=== PATIENT | female | born 1965 | race African-American/Black ===

== ENCOUNTER 2017-03-02 15:59 | Emergency (ER) | payer SELFPAY ==
[~2017-03-02] VITALS: Ht 167.6 cm; Wt 108.0 kg
[~2017-03-02 15:59] MED LIST: ALBI1INJ SQ; DAPA1TAB2 PO; ENOX30P SQ; GLIP5 PO; HYDR-3580 PO; TRAM50 PO; Z.0.COMMODE-3:1; Z.0.CPM; Z.0.WALKERFRONT
[2017-03-02 16:05] VITALS: BP 166/81; PULSE 80; RESP 16; TEMP 98.8; O2SAT 100
[2017-03-02] MEDS ORDERED: DEXAMETHASONE SOD PHOS 20 MG/5 ML VIAL IM ONE (17:15)
[2017-03-02] MEDS ORDERED: oxyCODONE/ACETAMINOPHEN 5 MG/325 MG TAB PO ONE (17:15)
[2017-03-02] MEDS ORDERED: KETOROLAC TROMETHAMINE 60 MG/2 ML (IM) VIAL IM ONE (17:15)
--- NOTE | 2017-03-02 17:17 | PD ---
HPI Chief Complaint: Back/ Neck Pain or Injury Time Seen by Provider: 17:07 Travel History International Travel<30 days: No Contact w/Intl Traveler<30days: No Traveled to known affect area: No History of Present Illness HPI Patient is a 52-year-old female with history of hypertension, severe arthritis, diabetes, history of urinary incontinence presents to emergency room with complaints of low back pain. Patient reports that her left side of her low back has been hurting her for the past few days. Patient reports that she has pain from her left sided low back which radiates down to her pulse ox. Patient reports that when she sits and relaxes, pain resolves on its own. Patient reports increased pains with ambulation. Patient denies any fall or trauma to her low back the past few days, patient denies any IV drug abuse. Patient reports that she is generally incontinent of urine, she always wears depends underwear. Denies saddle anesthesia. Patient with no fever or chills, no abdominal pain. Patient with no other complaints at this time. PFSH Past Medical History Arthritis: Yes (LEFT KNEE) Asthma: Yes Autoimmune Disease: No Blood Disorders: Yes (UTERINE BLEEDING DYSFUNCTION) Cancer: No Cardiovascular Problems: Yes High Cholesterol: Yes Cerebrovascular Accident: No Diabetes: Yes (diet control) Patient Takes Glucophage: No Diminished Hearing: No Endocrine: Yes (psoriasis) Gastrointestinal Disorders: Yes (VENTRAL HERNIA) Glaucoma: No Genitourinary: No Hepatitis: No Hiatal Hernia: No Hypertension: Yes Immune Disorder: No Implanted Vascular Access Dvce: No Musculoskeletal: Yes (osteoartriis) Neurologic: No Psychiatric: No Reproductive: Yes (UTERINE BLEEDING DYSFUNCTION) Respiratory: Yes (ASTHMA) Immunizations Current: No Myocardial Infarction: No Thyroid Disease: No Influenza Vaccination: No ?: Not Menopausal: Yes : 1 Para: 1 Past Surgical History Abdominal Surgery: Yes (EXP LAP, VENTRAL HERNIA REPAIR, ) AICD: No Appendectomy: Yes Cardiac Surgery: No Section: Yes Ear Surgery: No Endocrine Surgery: No Eye Surgery: No Genitourinary Surgery: No Gynecologic Surgery: Yes (ROCIO, BSO) Hysterectomy: Yes Joint Replacement: No Oral Surgery: No Pacemaker: No Thoracic Surgery: No Other Surgery: Yes Social History Alcohol Use: No Tobacco Use: Yes (1/2 ppk day x20 yrs) Substance Use: No Allergies-Medications (Allergen,Severity, Reaction): Coded Allergies: diatrizoate meglumine (Unverified Adverse Reaction, Severe, VOMITING, ) gadobenic acid (Unverified Adverse Reaction, Severe, VOMITING, 03/02/17) gadodiamide (Unverified Adverse Reaction, Severe, VOMITING, 03/02/17) gadoteridol (Unverified Adverse Reaction, Severe, VOMITING, 03/02/17) iodixanol (Unverified Adverse Reaction, Severe, VOMITING, 03/02/17) iohexol (Unverified Adverse Reaction, Severe, VOMITING, 03/02/17) Reported Meds & Prescriptions Reported Meds & Active Scripts Active Ibuprofen 600 Mg Tab 600 Mg PO Q6H PRN Medrol Dosepak (Methylprednisolone) 4 Mg Dspk 4 Mg PO DIRECTED Per Pharmacist direction Percocet (Oxycodone-Acetaminophen) 5-325 mg Tab 1 Tab PO Q6H PRN Review of Systems General / Constitutional: No: Fever Eyes: No: Visual changes HENT: No: Headaches Cardiovascular: No: Chest Pain or Discomfort Respiratory: No: Shortness of Breath Gastrointestinal: No: Abdominal Pain Genitourinary: No: Dysuria Musculoskeletal: Positive: Pain (left sided low back pain) Skin: No Rash Neurologic: No: Weakness Psychiatric: No: Depression Endocrine: No: Polydipsia Hematologic/Lymphatic: No: Easy Bruising Physical Exam Narrative GENERAL: moderate distress SKIN: Focused skin assessment warm/dry. HEAD: Atraumatic. Normocephalic. NECK: Trachea midline. No JVD. CARDIOVASCULAR: Regular rate and rhythm. No murmur appreciated. RESPIRATORY: No accessory muscle use. Clear to auscultation. Breath sounds equal bilaterally. GASTROINTESTINAL: Abdomen soft, non-tender, nondistended. Hepatic and splenic margins not palpable. MUSCULOSKELETAL: No obvious deformities. No clubbing. No cyanosis. No edema. Patient with left sided lumbar paraspinal tenderness, pain to left lower extremity with 30 degrees leg raises NEUROLOGICAL: Awake and alert. No obvious cranial nerve deficits. Motor grossly within normal limits. Normal speech. Patient ambulating in the emergency with normal gait. PSYCHIATRIC: Appropriate mood and affect; insight and judgment normal. Data Data Last Documented VS Vital Signs Date Time Temp Pulse Resp B/P (MAP) Pulse Ox O2 Delivery O2 Flow Rate FiO2 03/02/17 16:05 98.8 80 16 166/81 (109) 100 Orders Orders Spine, Lumbar - Ltd (Ap & Lat) (03/02/17 ) Ketorolac Inj (Toradol Inj) (03/02/17 17:15) Dexamethasone Inj (Decadron Inj) (03/02/17 17:15) Oxycodone-Acetamin 5-325 Mg (Percocet (03/02/17 17:15) MDM Medical Decision Making Medical Screen Exam Complete: Yes Emergency Medical Condition: Yes Medical Record Reviewed: Yes Interpretation(s) Vital Signs Date Time Temp Pulse Resp B/P (MAP) Pulse Ox O2 Delivery O2 Flow Rate FiO2 03/02/17 16:05 98.8 80 16 166/81 (109) 100 Differential Diagnosis Sciatica, muscle strain, fracture, cauda equina though unlikely Narrative Course Patient is a 52-year-old female who presents to emergency room with complaints of left-sided low back pain which radiates down her left buttocks which has been ongoing for the past few days. Patient denies any trauma or fall. Patient with history of low back pain in the past. Patient is not an IV drug abuser, reports that she did try taking acetaminophen with no relief of symptoms. Patient denies any saddle anesthesia, patient does have baseline incontinence of urine and does use a depends diaper daily. She denies any incontinence of stool this time. Overall, patient is nontoxic and evaluation and is ambulating in the emergency room with normal gait. She has no signs of cauda equina During the course of the patients emergency department visit, the patients history, examination, and differential diagnosis were reviewed with the patient. The patient was placed on a awake overnight monitor with oximetry and frequent blood pressure monitoring. The patient was initially provided IM dexamethasone, IM Toradol as well as a dose of percocet Radiology studies were reviewed and remarkable for: Last Impressions Lumbar Spine X-Ray 03/02/17 0000 Signed Impressions: Service Date/Time: Thursday, March 02, 2017 17:37 - CONCLUSION: 1. Mild degenerative spondylosis most prominently at L3-5. Dick Williamson MD Patient feeling better after meds administered, I reviewed results of x-rays with patient. Patient will follow up with orthopedic surgeon and will return to ER as needed. I encouraged patient to monitor her blood sugars carefully as she did get a dose of IM dexamethasone and will be discharged on Medrol Dosepak. Signs and symptoms of when to return to the emergency room was reviewed patient in detail. Diagnosis Primary Impression: Sciatica of left side Referrals: Timothy Upton MD Patient Instructions: Narcotic given in the ED, General Instructions Departure Forms: Tests/Procedures, Work Release Enter return to work date: Mar 04, 2017 Additional Instructions: Please provide patient with a copy of her studies at discharge Please follow up with your primary care doctor in 2-3 days Return to the ER if symptoms worsen or progress Return to the ER as needed Do not drive or operate heavy machinery while taking narcotic pain medications Please follow up with an orthopedic surgeon, return to ER as needed You were given a dose of steroids today and was sent home with a steroid taper, please monitor blood sugars carefully. Med/Other Pt SpecificInfo: Prescription(s) given Scripts Ibuprofen (Ibuprofen) 600 Mg Tab 600 MG PO Q6H Y for Pain/Inflammation, #40 TAB 0 Refills Prov: Julia Virgen DO 03/02/17 Methylprednisolone Dosepak (Medrol Dosepak) 4 Mg Dspk 4 MG PO DIRECTED, #1 DSPK 0 Refills Per Pharmacist direction Prov: Julia Virgen DO 03/02/17 Oxycodone-Acetaminophen (Percocet) 5-325 mg Tab 1 TAB PO Q6H Y for PAIN, #10 TAB 0 Refills Prov: Julia Virgen DO 03/02/17 Disposition: 01 DISCHARGE HOME Condition: Stable Julia Vigren DO Mar 02, 2017 17:17
[2017-03-02] MEDS ORDERED: MEDR4PAK PO (17:26)
[2017-03-02] MEDS ORDERED: PERC5TAB12 PO (17:26)
[2017-03-02] MEDS ORDERED: IBUP-232 PO (17:26)
--- NOTE | 2017-03-02 17:56 | RADRPT ---
EXAM DATE/TIME: 03/02/2017 17:37 [facility] COMPARISON: No previous studies available for comparison. INDICATIONS : Lower back pain from unknown injury. MEDICAL HISTORY : None. SURGICAL HISTORY : Total knee replacement, right. ENCOUNTER: Initial ACUITY: 1 day PAIN SCORE: 7/10 LOCATION: Bilateral lower back. FINDINGS: Two view examination was performed. There are five non-rib bearing vertebral bodies. The vertebral bodies are in normal alignment without evidence of subluxation or scoliosis. Mild disc space narrowin g and osteophyte formation most prominently at L3-4 and L4-5. The pedicles are intact. Bony minerali zation is normal. No fracture is identified. CONCLUSION: 1. Mild degenerative spondylosis most prominently at L3-5. Dick Williamson MD on March 02, 2017 at 17:53 Board Certified Radiologist. This report was verified electronically.
[2017-03-02 18:29] VITALS: RESP 16
[2017-03-02 18:50] VITALS: BP 148/89
== END 2017-03-02 19:00 | disposition home or self-care (01) ==
LOC: PHED 15:59
DX: M54.32 Sciatica, left side (principal); M47.9 Spondylosis, unspecified; I10 Essential (primary) hypertension; M19.90 Unspecified osteoarthritis, unspecified site; E11.9 Type 2 diabetes mellitus without complications; J45.909 Unspecified asthma, uncomplicated; E78.00 Pure hypercholesterolemia, unspecified; F17.200 Nicotine dependence, unspecified, uncomplicated; Z79.899 Other long term (current) drug therapy
CPT/HCPCS: 72100; 96372; 99284; J1100; J1885